=== PATIENT | female | born 1990 | race Caucasian/White ===

== ENCOUNTER 2025-01-18 12:04 | Emergency (ER) | payer OTHER ==
[~2025-01-18] VITALS: Ht 172.7 cm; Wt 56.9 kg
[2025-01-18 12:41] LABS: BASO # 0.0 10^3/uL (0.0-0.2); BASO % 0.5 % (0.0-1.0); EOS # 0.0 10^3/uL (0.0-0.5); EOS % 0.6 % (0.0-3.0); LYMPH # 2.1 10^3/uL (1.5-5.0); LYMPH % 33.9 % (24.0-44.0); MONO # 0.4 10^3/uL (0.0-0.8); MONO % 5.6 % (2.0-8.0); NEUTROPHILS # 3.7 10^3/uL (1.5-8.5); NEUTROPHILS % 59.1 % (36.0-66.0); PLATELET COUNT, AUTOMATED 219 10^3/uL (150-450)
[2025-01-18 12:52] LABS: ERYTHROCYTE SEDIMENTATION RATE < 1 mm/hr (0-20)
[2025-01-18] MEDS: KETOROLAC 30 MG/ML 1 ML VIAL IV ONE (13:03)
[2025-01-18 13:13] LABS: ALT/SGPT 21 U/L (7.0-40); AST/SGOT 16 U/L (<34); C REACTIVE PROTEIN QUANTITATIV < 0.50 MG/DL (<1.0)
[2025-01-18] MEDS: NS (Normal Saline) 0.9% 1,000 ML IV ONE (13:19)
[2025-01-18 13:26] LABS: HCG, SERUM QUALITATIVE NEGATIVE (NEGATIVE)
[2025-01-18] MEDS ORDERED: ISOVUE-370 76% 100 ML VIAL As Ordered ONE (13:36)
[2025-01-18 14:38] LABS: KETONE, URINE AUTO RFX NEGATIVE (NEGATIVE); LEUKOCYTE ESTERASE UR AUTO RFX NEGATIVE (NEGATIVE); NITRITE, URINE AUTO RFX NEGATIVE (NEGATIVE); RBC, URINE AUTO RFX 0 /HPF (0-3); SQUAM EPITHELIAL CELL UR AURFX 1 /HPF (0-6); WBC, URINE AUTO RFX 0 /HPF (0-3)
[2025-01-18 15:46] VITALS: BP 103/63; TEMP 97.9; O2SAT 100
== END 2025-01-18 16:41 | disposition home or self-care (01) ==
LOC: M ED 12:04
DX: R10.9 Unspecified abdominal pain (principal); G43.909 Migraine, unspecified, not intractable, without status migrainosus; F17.290 Nicotine dependence, other tobacco product, uncomplicated; Z88.5 Allergy status to narcotic agent; Z88.8 Allergy status to other drugs, medicaments and biological substances; Z91.018 Allergy to other foods
CPT/HCPCS: 74177; 80047; 80076; 81001; 83605; 83690; 84703; 85025; 85652; 86140; 96361; 96374; 99284; J1885; Q9967